=== PATIENT | female | born 1990 | race Caucasian/White ===

== ENCOUNTER 2016-09-30 06:53 | Day surgery (SDC) | payer MEDICARE, MEDICAID ==
[~2016-09-30 06:53] MED LIST: LACTATED RINGERS 1000 ML IV PRN; LIDOCAINE 0.5% INJ-PF (5 MG/ML) 50 ML SDV SUBCUT PRN
[2016-09-30] MEDS: MIDAZOLAM HCL SYRUP 10 MG/5 ML UDC ONE ×2 (07:35→08:07)
[2016-09-30] MEDS ORDERED: LIDOCAINE 1% INJ-PF (10 MG/ML) 30 ML SDV ONE (08:30)
[2016-09-30] MEDS ORDERED: KETAMINE HCL INJ 500 MG/10 ML VIAL ONE (09:18)
[2016-09-30] MEDS ORDERED: FENTANYL CITRATE INJ/PF 100 MCG/2 ML AMPUL ONE (09:18)
[2016-09-30] MEDS ORDERED: MIDAZOLAM 2 MG/2 ML INJ ONE (09:18)
[2016-09-30] MEDS ORDERED: PROPOFOL INJ 200 MG/20 ML VIAL IV ONE (09:19)
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
[2016-09-30 11:24] VITALS: BP 98/58
[2016-09-30] MEDS ORDERED: ONDANSETRON HCL INJ/PF 4 MG/2 ML SDV ONE (15:48)
[2016-09-30] MEDS ORDERED: GLYCOPYRROLATE INJ 0.4 MG/2 ML VIAL ONE (15:48)
[2016-09-30] MEDS ORDERED: LIDOCAINE 2% INJ-PF (20 MG/ML) 10 ML AMPUL ONE (15:48)
== END 2016-09-30 11:16 | disposition home or self-care (01) ==
LOC: OROUT 06:53
PROVIDERS: ATTEND Specialist
PROC: 8E0UXY7 Examination of Female Reproductive System (ICD-10-PCS; principal; 2016-09-30 09:00)
DX: T76.21XA Adult sexual abuse, suspected, initial encounter (principal); Z09 Encounter for follow-up examination after completed treatment for conditions other than malignant neoplasm; Z87.42 Personal history of other diseases of the female genital tract; N90.89 Other specified noninflammatory disorders of vulva and perineum; Q52.79 Other congenital malformations of vulva; Q90.0 Trisomy 21, nonmosaicism (meiotic nondisjunction); J45.909 Unspecified asthma, uncomplicated; E07.9 Disorder of thyroid, unspecified; K21.9 Gastro-esophageal reflux disease without esophagitis; E66.3 Overweight; Z68.33 Body mass index [BMI] 33.0-33.9, adult; Z79.899 Other long term (current) drug therapy; F39 Unspecified mood [affective] disorder; Z98.890 Other specified postprocedural states
CPT/HCPCS: 81025; 87624; 87481 ×2; 87491; 87591; 87798 ×4; 88142; 57410; J2250; J3490 ×2; J2405; J2704; A9270; 940; J3010